=== PATIENT | male | born 2000 | race Hispanic/Latino ===

== ENCOUNTER 2021-09-28 16:42 | Emergency (ER) | payer SELFPAY ==
[2021-09-28] MEDS ORDERED: NA CHLORIDE 0.9% 1,000 ML ONE ×2 (17:01→19:19)
[2021-09-28] MEDS ORDERED: MORPHINE 4 MG/ML SYR ONE (17:01)
[2021-09-28] MEDS ORDERED: ONDANSETRON 4 MG/2 ML VIAL ONE (17:01)
[2021-09-28 17:29] LABS: Absolute Lymphocytes (CBC) 1.7 K/uL (0.7-4.9); Hematocrit 46.3 % (39.6-49.0); Lymphocytes % 6.5 % (15.3-44.8); MPV 9.6 fL (7.6-11.3); RBC Red Blood Cell Count 5.63 M/uL (4.33-5.43)
[2021-09-28 17:33] LABS: Protime INR 1.21
[2021-09-28 17:41] LABS: BUN Blood Urea Nitrogen 10 mg/dL (7-18); Bicarbonate 23 mmol/L (21-32); Creatine Phosphokinase 40 U/L (39-308); Potassium 3.2 mmol/L (3.5-5.1); Sodium Level 131 mmol/L (136-145)
[2021-09-28 17:42] LABS: Glucose Level 418 mg/dL (74-106)
[2021-09-28] MEDS ORDERED: INSULIN -REGULAR HUMAN 50 UNIT/0.5 ML ML ONE (17:55)
--- NOTE | 2021-09-28 18:37 | RAD REPORT ---
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 No acute fracture or dislocation. Mod erate posterior and plantar calcaneal spurs.
--- NOTE | 2021-09-28 18:39 | RAD REPORT ---
EXAM DESCRIPTION: RAD - Foot Left 3 View - 09/28/2021 6:06 pm CLINICAL HISTORY: Pain;Swelling COMPARISON: Ankle Left 3 View dated 09/28/2021 FINDINGS: Mild soft tissue swelling is seen along the dorsum of the forefoot. Soft tissue swelling e xtends to involve the great toe. There is subtle cortical irregularity involving the distal phalanx o f the great toe. Recommend correlation with clinical point tenderness to evaluate for possible fractu re.
--- NOTE | 2021-09-28 19:06 | ER ---
Nurse's Notes [facility] Name: Anup Corral Age: 21 yrs Sex: Male : 2000 Arrival Date: 09/28/2021 Time: 16:43 Bed 19 Private MD: Diagnosis: Other sprain of left foot;Hyperglycemia, unspecified Presentation: 09/28 16:44 Chief complaint: Patient states: pt reported being at work, tripped and injured left trotter foot. left foot have become reddend and swollen in the last few days. Coronavirus screen: Vaccine status: Patient reports being unvaccinated. Ebola Screen: Patient negative for fever greater than or equal to 101.5 degrees Fahrenheit, and additional compatible Ebola Virus Disease symptoms Patient denies travel to an Ebola-affected area in the 21 days before illness onset. Initial Sepsis Screen: Does the patient meet any 2 criteria? RR > 20 per min. HR > 90 bpm. Yes Does the patient have a suspected source of infection? Yes: Skin breakdown/wound. Risk Assessment: Do you want to hurt yourself or someone else? Patient reports no desire to harm self or others. Onset of symptoms was September 26, 2021. 16:44 Method Of Arrival: EMS: [facility] 16:44 Acuity: JACKIE 2 trotter Triage Assessment: 16:52 General: Appears in no apparent distress. Behavior is calm, cooperative. Pain: trotter Complains of pain in left foot. Historical: - Allergies: 16:52 No Known Allergies; trotter - PMHx: 16:52 None; trotter - PSHx: 16:52 None; trotter - Immunization history:: Adult Immunizations not up to date. - Social history:: Smoking status: Patient denies any tobacco usage or history of. - Family history:: not pertinent. - Hospitalizations: : No recent hospitalization is reported. Screenin:55 Abuse screen: Denies threats or abuse. Denies injuries from another. Nutritional trotter screening: No deficits noted. Tuberculosis screening: No symptoms or risk factors identified. Fall Risk None identified. Assessment: 16:55 General: Appears in no apparent distress. distressed. Pain: Complains of pain in left trotter foot. Derm: Reports burning, pain that is 8 out of 10 on a pain scale. Injury Description:. 19:30 General: Appears in no apparent distress. Pain: Denies pain. Neuro: Level of mk Consciousness is awake, alert, obeys commands, Oriented to person, place, time, situation, Cardiovascular: Heart tones S1 S2 Capillary refill < 3 seconds fingers toes JVD is absent Patient's skin is warm and dry. Pulses are 2+ in right radial artery, right dorsalis pedis artery, left radial artery and left dorsalis pedis artery. Respiratory: Airway is patent Trachea midline Respiratory effort is even, unlabored, Respiratory pattern is regular, symmetrical. GI: Abdomen is flat, non-distended. : Urine is clear. Derm: Skin is intact, is healthy with good turgor. Musculoskeletal: Circulation, motion, and sensation intact. Capillary refill < 3 seconds, fingers. toes. Range of motion: intact in all extremities. 20:30 Reassessment: No changes from previously documented assessment. Patient and/or family mk updated on plan of care and expected duration. Pain level reassessed. Patient is alert, oriented x 3, equal unlabored respirations, skin warm/dry/pink. Patient denies pain at this time. Patient states feeling better. Vital Signs: 16:44 BP 146 / 91; Pulse 141; Resp 22; Temp 99.0(O); Pulse Ox 97% ; Weight 83.91 kg; Height 5 trotter ft. 3 in. (160.02 cm); 17:37 BP 130 / 79; Pulse 123; Resp 20; Pulse Ox 97% on R/A; trotter 19:30 BP 139 / 89; Pulse 128; Resp 18; Pulse Ox 98% on R/A; mk 20:30 BP 143 / 83; Pulse 121; Resp 18; Temp 98.4; Pulse Ox 98% on R/A; mk 16:44 Body Mass Index 32.77 (83.91 kg, 160.02 cm) trotter Valentín Coma Score: 19:30 Eye Response: spontaneous(4). Verbal Response: oriented(5). Motor Response: obeys mk commands(6). Total: 15. 20:30 Eye Response: spontaneous(4). Verbal Response: oriented(5). Motor Response: obeys mk commands(6). Total: 15. ED Course: 16:43 Patient arrived in ED. ds1 16:44 Yousuf May MD is Attending Physician. rn 16:52 Triage completed. trotter 16:52 Arm band placed on. trotter 16:55 Bed in low position. trotter 16:55 No provider procedures requiring assistance completed. Inserted saline lock: 18 gauge trotter in right antecubital area, using aseptic technique. 17:04 Lactate Sent. trotter 17:04 Blood Culture Adult (2) Sent. trotter 17:05 CBC with Automated Diff Sent. trotter 17:06 CK Sent. trotter 17:06 Protime (+inr) Sent. trotter 17:06 Ptt, Activated Sent. trotter 17:06 CBC with Diff Sent. trotter 17:06 Basic Metabolic Panel Sent. trotter 17:06 Inserted. trotter 18:06 XRAY Foot LEFT 3 View In Process Unspecified. EDMS 18:06 XRAY Ankle LEFT 3 view In Process Unspecified. EDNJ 19:18 Yohana Connors, RN is Primary Nurse. 19:30 Awaiting: finishinig fluids prior to dc. 20:32 Placed in gown. Bed in low position. Call light in reach. Side rails up X 1. Cardiac mk monitor on. Pulse ox on. NIBP on. Administered Medications: 17:04 Drug: NS 0.9% 1000 ml Route: IV; Rate: 1000 ml; Site: right antecubital; trotter 17:05 Drug: morphine 4 mg Route: IVP; Site: right antecubital; trotter 17:15 Follow up: Response: No adverse reaction trotter 17:05 Drug: Zofran (Ondansetron) 4 mg Route: IVP; Site: right antecubital; trotter 17:14 Follow up: Response: No adverse reaction 18:00 Drug: Insulin Regular Human 10 units {Co-Signature: rose marie (Maryan Balbuena RN).} Route: mk Sub-Q; Site: abdomen; 20:33 Follow up: Response: No adverse reaction 19:19 Drug: NS 0.9% 1000 ml Route: IV; Rate: 1000 ml; Site: left antecubital; 20:33 Follow up: Response: No adverse reaction Outcome: 19:05 Discharge ordered by . rn 20:40 Patient left the ED. mk Signatures: Dispatcher [employer] [facility] GusLou ds1 May, Yousuf, MD MD rn Au-Stager, Maryan, RN RN trotter Kotarski, Yohana, RN RN mk Maryan Au-Stager RN trotter Corrections: (The following items were deleted from the chart) 20:40 20:30 BP 143 / 83; Pulse 121bpm; Resp 18bpm; Pulse Ox 98% RA; mk mk
--- NOTE | 2021-09-28 19:06 | EDPHYS ---
Physician Documentation [facility] Name: Anup Corral Age: 21 yrs Sex: Male : 2000 Arrival Date: 09/28/2021 Time: 16:43 Bed 19 Private MD: ED Physician Yousuf May HPI: 09/28 16:55 This 21 yrs old Male presents to ER via EMS with complaints of Foot pain and injury. rn 16:55 The patient presents with an injury, pain, swelling. The complaints affect the left rn foot. Onset: The symptoms/episode began/occurred 2 day(s) ago. Modifying factors: The symptoms are alleviated by elevation of extremity, the symptoms are aggravated by weight bearing, movement. Associated signs and symptoms: Pertinent positives: swelling. Severity of symptoms: At their worst the symptoms were moderate, in the emergency department the symptoms are unchanged. The patient has not experienced similar symptoms in the past. The patient has been recently seen by a physician:. Patient reports injury to left foot 2 days ago, was at work and was walking tripped, was wearing boots, landed wrong on left foot. Seen at clinic yesterday with x-ray ordered and prescribed muscle relaxer and ibuprofen, no results given yet. Reports increased pain today.. Historical: - Allergies: 16:52 No Known Allergies; trotter - PMHx: 16:52 None; trotter - PSHx: 16:52 None; trotter - Immunization history:: Adult Immunizations not up to date. - Social history:: Smoking status: Patient denies any tobacco usage or history of. - Family history:: not pertinent. - Hospitalizations: : No recent hospitalization is reported. ROS: 16:55 MS/extremity: Positive for pain, swelling, Negative for laceration, paresthesias. rn 16:55 Constitutional: Negative for fever, chills, and weight loss, Eyes: Negative for injury, pain, redness, and discharge, Neck: Negative for injury, pain, and swelling, Cardiovascular: Negative for chest pain, palpitations, and edema, Respiratory: Negative for shortness of breath, cough, wheezing, and pleuritic chest pain, Abdomen/GI: Negative for abdominal pain, nausea, vomiting, diarrhea, and constipation, Back: Negative for injury and pain, MS/Extremity: Positive for injury and swelling to left foot Skin: Positive bruising and discoloration to the left foot Neuro: Negative for headache, weakness, numbness, tingling, and seizure. Exam: 16:55 Constitutional: This is a well developed, well nourished patient who is awake, alert, rn appears uncomfortable Head/Face: Normocephalic, atraumatic. Cardiovascular: Tachycardic, regular. No pulse deficits Respiratory: Mild tachypnea, speaking full sentences. Skin: Warm, ecchymosis with mild erythema to the dorsum of the left foot, no open wounds. Small blister in the webspace between fourth and fifth left toes MS/ Extremity: Pulses equal, no cyanosis. Neurovascular intact. Swelling of distal left foot with moderate swelling. Pulses of left foot are equal to right foot. Soft, not firm. Neuro: Awake and alert, GCS 15 Vital Signs: 16:44 BP 146 / 91; Pulse 141; Resp 22; Temp 99.0(O); Pulse Ox 97% ; Weight 83.91 kg; Height 5 trotter ft. 3 in. (160.02 cm); 17:37 BP 130 / 79; Pulse 123; Resp 20; Pulse Ox 97% on R/A; trotter 19:30 BP 139 / 89; Pulse 128; Resp 18; Pulse Ox 98% on R/A; mk 20:30 BP 143 / 83; Pulse 121; Resp 18; Temp 98.4; Pulse Ox 98% on R/A; mk 16:44 Body Mass Index 32.77 (83.91 kg, 160.02 cm) trotter Alfred Coma Score: 19:30 Eye Response: spontaneous(4). Verbal Response: oriented(5). Motor Response: obeys mk commands(6). Total: 15. 20:30 Eye Response: spontaneous(4). Verbal Response: oriented(5). Motor Response: obeys mk commands(6). Total: 15. MDM: 16:44 Patient medically screened. rn 19:03 Differential diagnosis: fracture, sprain, cellulitis. Data reviewed: vital signs, rn nurses notes, lab test result(s), radiologic studies, plain films, and as a result, I will discharge patient. 19:04 Counseling: I had a detailed discussion with the patient and/or guardian regarding: the rn historical points, exam findings, and any diagnostic results supporting the discharge/admit diagnosis, lab results, radiology results, the need for outpatient follow up, to return to the emergency department if symptoms worsen or persist or if there are any questions or concerns that arise at home. Response to treatment: the patient's symptoms have markedly improved after treatment, and as a result, I will discharge patient. ED course: Patient feels much better. X-ray does not show obvious fracture. Shows questionable fracture at the distal phalanx of the great toe but patient has no tenderness. Patient has more tenderness and swelling on the lateral foot. Improved greatly with morphine. Patient also with hyperglycemia but no acidosis. Insulin and fluids ordered. Elevated white count. Will cover with antibiotics given erythema foot but no open wounds or other signs of infection noted. Return precautions given and understood.. 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 States purely here for his left foot.. 09/28 16:51 Order name: CBC with Diff rn 09/28 16:51 Order name: Basic Metabolic Panel; Complete Time: 17:44 rn 09/28 16:51 Order name: Protime (+inr); Complete Time: 17:44 rn 09/28 16:51 Order name: Ptt, Activated; Complete Time: 17:44 rn 09/28 16:51 Order name: CK; Complete Time: 17:44 rn 09/28 16:52 Order name: CBC with Automated Diff EDMS 09/28 16:51 Order name: XRAY Foot LEFT 3 View; Complete Time: 18:46 rn 09/28 16:51 Order name: XRAY Ankle LEFT 3 view; Complete Time: 18:46 rn 09/28 16:53 Order name: Blood Culture Adult (2) rn 09/28 16:53 Order name: Lactate; Complete Time: 17:44 rn 09/28 20:36 Order name: Manual Differential EDMS 09/28 16:51 Order name: IV Start; Complete Time: 17:06 rn 09/28 16:54 Order name: Glucose Level; Complete Time: 18:49 rn Administered Medications: 17:04 Drug: NS 0.9% 1000 ml Route: IV; Rate: 1000 ml; Site: right antecubital; trotter 17:05 Drug: morphine 4 mg Route: IVP; Site: right antecubital; trotter 17:15 Follow up: Response: No adverse reaction trotter 17:05 Drug: Zofran (Ondansetron) 4 mg Route: IVP; Site: right antecubital; 17:14 Follow up: Response: No adverse reaction 18:00 Drug: Insulin Regular Human 10 units {Co-Signature: rose marie (Maryan Balbuena RN).} Route: mk Sub-Q; Site: abdomen; 20:33 Follow up: Response: No adverse reaction 19:19 Drug: NS 0.9% 1000 ml Route: IV; Rate: 1000 ml; Site: left antecubital; 20:33 Follow up: Response: No adverse reaction Disposition Summary: 09/28/21 19:05 Discharge Ordered Location: Home rn Problem: new rn Symptoms: have improved rn Condition: Stable rn Diagnosis - Other sprain of left foot rn - Hyperglycemia, unspecified rn Followup: rn - With: Private Physician - When: As needed - Reason: Recheck today's complaints, Re-evaluation by your physician Discharge Instructions: - Discharge Summary Sheet rn - Foot Sprain rn - Hyperglycemia rn - Blood Glucose Monitoring, Adult rn Forms: - Medication Reconciliation Form rn - Thank You Letter rn - Antibiotic employment law attorney - Prescription Opioid Use rn Prescriptions: - Clindamycin HCl 300 mg Oral Capsule - take 1 capsule by ORAL route every 6 hours for 10 days; 40 capsule; Refills: 0, rn Product Selection Permitted - Tylenol-Codeine #3 300 mg-30 mg Oral - take 15 tablet by ORAL route every 6-8 hours As needed; 15 tablet; Refills: 0, rn Product Selection Permitted Signatures: Dispatcher [employer] [facility] Yousuf May MD MD rn Au-Stager, Heather, RN RN ha Kotarski, Madeline, RN RN mk Heather Au-Stager RN ha Corrections: (The following items were deleted from the chart) 17:48 16:55 Constitutional: This is a well developed, well nourished patient who is awake, rn alert, appears uncomfortable Head/Face: Normocephalic, atraumatic. Cardiovascular: Tachycardic, regular. No pulse deficits Respiratory: Mild tachypnea, speaking full sentences. Skin: Warm, ecchymosis with mild erythema to the dorsum of the left foot, no open wounds. Small blister in the webspace between fourth and fifth left toes MS/ Extremity: Pulses equal, no cyanosis. Neurovascular intact. Swelling of distal left foot with moderate swelling Neuro: Awake and alert, GCS 15 rn
[2021-09-28 21:01] VITALS: O2SAT 98
[2021-09-28 21:03] VITALS: BP 143/83; TEMP 98.4
[2021-09-28 21:04] LABS: Blood Morphology Comment NOT SEEN (NOT SEEN); Platelet Estimate ADEQ
== END 2021-09-28 20:40 | disposition home or self-care (01) ==
LOC: ER 16:42
DX: S93.602A Unspecified sprain of left foot, initial encounter (principal); W01.0XXA Fall on same level from slipping, tripping and stumbling without subsequent striking against object, initial encounter; Y92.69 Other specified industrial and construction area as the place of occurrence of the external cause; R73.9 Hyperglycemia, unspecified
CPT/HCPCS: 36415; 80048; 82550; 82947; 83605; 85025; 85610; 85730; 87040; 96372; 96374; 96375; 99284; J2405; J7030